=== PATIENT | male | born 1955 | race Hispanic/Latino ===

== ENCOUNTER 2017-11-05 10:47 | Day surgery (SDC) | payer OTHER ==
[2017-11-03 10:30] VITALS: BMI 22.4
[2017-11-05] MEDS ORDERED: DiphenhydrAMINE 50 mg/ml Inj ONE (13:13)
[2017-11-05] MEDS ORDERED: Iodixanol 320 MG/ML 100 ML BOTTLE IV ONE (13:14)
[2017-11-05] MEDS ORDERED: Midazolam 2 MG/2 ML VIAL ONE (13:14)
[2017-11-05] MEDS ORDERED: Iohexol 350mg/ml 100 ML ONE (13:15)
[2017-11-05] MEDS ORDERED: Sodium Chloride 0.45% 1,000 ML IV SCH (16:15)
--- NOTE | 2017-11-09 07:13 | CARDCATH ---
PROCEDURE DATE: 11/05/2017 PROCEDURE: Left heart catheterization. The patient is 61 years old male who has history of HIV, presented because of chest pain, non-ST elevation myocardial infarction was ruled in. Cardiac catheterization was recommended. The procedure and its risks were fully explained to the patient who understood and agreed for the procedure PROCEDURES: After local infiltration of 1% lidocaine a 6 Palestinian sheath was placed in the right femoral artery. Left and right angiography was performed with 6-Palestinian JL4 and JR diagnostic catheter. Left ventriculogram was performed in THOMAS projection with 6 Palestinian pigtail catheter. The patient tolerated the procedure well without any complication. ANGIOGRAM FINDINGS: Selected injection of the left coronary artery revealed left main to be a normal vessel. Left main bifurcated into medium size LAD and are large dominant circumflex artery. The LAD had critical disease after the origin of first adductor restaurant floor manager and extending up to the proximal to mid segment followed by subtotal occlusion of the LAD with delayed antegrade filling. The circumflex was angiographically unremarkable. selective injection of the right coronary artery revealed a small nondominant vessel that was angiographically unremarkable. The left ventriculogram performed in THOMAS projection revealed mild apical hypokinesia overall ejection fraction estimated at 65%. 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 RECOMMENDATIONS: PCI to the LAD, subtotal occlusion is recommended and would be presented to the patient. Raffi Frankel MD
== END 2017-11-05 19:15 | disposition home or self-care (01) ==
LOC: C.CATHLAB 10:47
PROVIDERS: ATTEND Specialist
DX: I21.4 Non-ST elevation (NSTEMI) myocardial infarction (principal); B20 Human immunodeficiency virus [HIV] disease
CPT/HCPCS: 93452; C1769; C1887; C1893; J1200; J1644; J2250; J7030; Q9967